=== PATIENT | female | born 1945 | race African-American/Black ===

== ENCOUNTER 2017-04-13 20:51 | Emergency (ER) | payer MEDICARE, OTHER ==
[~2017-04-13] VITALS: Ht 165.1 cm; Wt 93.4 kg
[~2017-04-13 20:51] MED LIST: ACET325T16 PO; AMIO200T2 PO; AMIT50TA PO; AMLO10TA2 PO; ASPI325T11 PO; ASPI81TA50 PO; ATOR40TA59 PO; CLIN150C14 PO; CLON0.3T PO; DIPH25CA58 PO; FAMO20TA5 PO; FURO40TA4 PO; HYDR-2766 PO; INSU100C SQ; INSU100I13 SQ; LEVO500T59 PO; LINA5TAB4 PO; METO50TA2 PO; MULT-658 PO; NITR0.4T22 SL; POLY17PO29 PO; POTA500T5 PO; SENN-22 PO; SENN-37 PO; SPIR25TA3 PO; VALS160T3 PO; ZOLP5TAB PO
[2017-04-13 21:10] VITALS: BP 201/84
--- NOTE | 2017-04-13 21:22 | PHYS DOC ---
Past Medical History Past Medical History: Diabetes-Type I, Hypertension Additional Past Medical Histor: insomnia Past Surgical History: Other Additional Past Surgical Histo: lumbar spine; morphine pain pump Alcohol Use: Sober Drug Use: None Adult General Chief Complaint Chief Complaint: HYPERGLYCEMIA HPI HPI 72-year-old female with history of diabetes presenting to the emergency department today reporting blood sugars around 211 around an hour prior to arrival. She has appointment with Dr. Schneider tomorrow morning. Her blood sugar here is 112. She otherwise is feeling well. She has a chronic headache that is not new and not different from previous. She also reports feeling mildly lightheaded. She reports recently changing her blood pressure medications about a week ago but does take her blood pressure medications. It is notably high here in the emergency room. She denies vision changes oliguria chest pain shortness of breath. Review of systems is negative for chest pain shortness of breath nausea vomiting. All other review of systems is negative unless otherwise noted in history of present illness. ED course: 72-year-old female presenting to the emergency department today reporting have blood sugars however here the patient's blood sugars under control. She has a normal physical examination. No acute symptoms. Blood pressure is quite elevated however the patient is currently titrating blood pressure medications with her primary care doctor. Vital signs otherwise unremarkable. The patient was then discharged home in stable condition to follow up with their primary care physician over the next 2-3 days. They were to return if their symptoms worsened or if they were concerned for any reason. [id number] discharge instructions and return precautions were given. Patient' s questions were answered to their satisfaction. Patient is comfortable plan. Review of Systems Review of Systems SEE ABOVE. Allergies Allergies Allergies Coded Allergies Type Severity Reaction Last Updated Verified penicillin Allergy Intermediate Rash 09/28/16 Yes Physical Exam Physical Exam SEE ABOVE Constitutional: Well developed, well nourished, no acute distress, non-toxic appearance. [] HENT: Normocephalic, atraumatic, bilateral external ears normal, oropharynx moist, no oral exudates, nose normal. [] Eyes: PERRLA, EOMI, conjunctiva normal, no discharge. [] Neck: Normal range of motion, no tenderness, supple, no stridor. [] Cardiovascular:Heart rate regular rhythm, no murmur [] Lungs & Thorax: Bilateral breath sounds clear to auscultation [] Abdomen: Bowel sounds normal, soft, no tenderness, no masses, no pulsatile masses. [] Skin: Warm, dry, no erythema, no rash. [] Back: No tenderness, no CVA tenderness. [] Extremities: No tenderness, no cyanosis, no clubbing, ROM intact, no edema. [] Neurologic: Alert and oriented X 3, normal motor function, normal sensory function, no focal deficits noted. [] Psychologic: Affect normal, judgement normal, mood normal. [] Current Patient Data Vital Signs Vital Signs Date Time Temp Pulse Resp B/P (MAP) Pulse Ox O2 Delivery O2 Flow Rate FiO2 04/13/17 21:10 99.1 56 18 99 Room Air 99.1 Lab Values Laboratory Tests Test 04/13/17 21:04 Glucose (Fingerstick) 112 mg/dL (70-99) H EKG EKG [] Radiology/Procedures Radiology/Procedures [] Course & Med Decision Making Course & Med Decision Making Pertinent Labs and Imaging studies reviewed. (See chart for details) [] Dragon Disclaimer Dragon Disclaimer This electronic medical record was generated, in whole or in part, using a voice recognition dictation system. Departure Departure Impression: Primary Impression: Hyperglycemia Disposition: HOME, SELF-CARE Condition: STABLE Referrals: ANDREW SCHNEIDER MD (PCP) Patient Instructions: Blood Sugar Monitoring, Adult, Managing Your High Blood Pressure Additional Instructions: Thank you for allowing us to participate in your care today. Followup with your primary care physician tomorrow. If you do not have a primary care provider you can ask for a list of our primary care providers. Return to the emergency department you have any new or concerning findings. This should be evaluated by the primary care physician and any necessary consulting services for continued management within a few days after discharge. Return to emergency room if you have any new or concerning symptoms including but not limited to fever, chills, nausea, vomiting, intractable pain, any new rashes, chest pain, shortness of air, uncontrolled bleeding, difficulty breathing, and/or vision loss. TRINH CASTREJON MD Apr 13, 2017 21:22
== END 2017-04-13 21:41 | disposition home or self-care (01) ==
LOC: ER 20:51
DX: E10.65 Type 1 diabetes mellitus with hyperglycemia (principal); I10 Essential (primary) hypertension; Z88.0 Allergy status to penicillin
CPT/HCPCS: 82962; 99282

== ENCOUNTER 2017-06-02 20:04 | Emergency (ER) | payer MEDICARE, OTHER ==
[~2017-06-02] VITALS: Ht 165.1 cm; Wt 77.6 kg
[~2017-06-02 20:04] MED LIST changes: -METO50TA2 PO; +METO50TA6 PO
[2017-06-02] MEDS ORDERED: fentaNYL PF VIAL 100 MCG/2 ML VIAL IV PRN (21:15)
[2017-06-02 22:02] LABS: CALCIUM 9.3 mg/dL (8.5-10.1); CREATININE 3.7 mg/dL (0.6-1.0); GFR 14.5; POTASSIUM 4.1 mmol/L (3.5-5.1)
[2017-06-02 22:08] LABS: ALBUMIN 4.2 g/dL (3.4-5.0); TOTAL BILIRUBIN 0.4 mg/dL (0.2-1.0); TOTAL PROTEIN 8.4 g/dL (6.4-8.2)
--- NOTE | 2017-06-02 22:08 | RAD ---
Three view lumbosacral spine History: Low back pain status post fall AP, coned-down lateral and lateral views of the lumbosacral spine were obtained. COMPARISON: September 04, 2016 The vertebral bodies are aligned. There has been prior fusion of L3-L5 with bilateral pedicle screws and posterior fusion rods. There is a pain pump on the right. There is minimal loss of stature of the L2 vertebral body which is not seen previously. There is mild loss of stature of the T12 vertebral body due to impaction of superior endplate which has progressed slightly. Impression: 1. L2 vertebral body compression fracture with minimal loss of stature was not present previously. 2. Mild loss of stature T12 has progressed since the prior study. End Impression Electronically signed by: Armen Todd III, MD (06/02/2017 10:05 PM) [facility]
[2017-06-02 22:43] LABS: BILIRUBIN,URINE NEGATIVE (NEG); GLUCOSE,URINE NEGATIVE (NEG); NITRITE,URINE NEGATIVE (NEG); PROTEIN,URINE NEGATIVE (NEG-TRACE); UROBILINOGEN,URINE 0.2 mg/dL (0.2 mg/dL)
[2017-06-02 22:50] LABS: BACTERIA,URINE 0 /HPF (0-FEW); RBC,URINE RARE /HPF (0-2); SQUAMOUS EPITHELIAL CELL,UR FEW /LPF; WBC,URINE RARE /HPF (0-4)
[2017-06-02] MEDS ORDERED: CLINDAMYCIN 600MG PREMIX 50 ML IV ONE (23:00)
[2017-06-02 23:12] VITALS: BP 156/83
[2017-06-02 23:45] LABS: BASO % 1 % (0-3); EOS % 3 % (0-3); HEMATOCRIT 31.7 % (36.0-47.0); HEMOGLOBIN 10.2 g/dL (12.0-15.5); LYMPH # 1.2 x10^3/uL (1.0-4.8); LYMPH % 33 % (24-48); MEAN CORPUSCULAR HEMOGLOBIN 27 pg (25-35); MEAN CORPUSCULAR HGB CONC 32 g/dL (31-37); MEAN CORPUSCULAR VOLUME 83 fL (79-100); MONO % 13 % (0-9); NEUT % 50 % (31-73); PLATELET COUNT 122 x10^3/uL (140-400); RED BLOOD COUNT 3.81 x10^6/uL (3.50-5.40); RED CELL DISTRIBUTION WIDTH 16.9 % (11.5-14.5); WHITE BLOOD COUNT 3.5 x10^3/uL (4.0-11.0)
--- NOTE | 2017-06-03 00:06 | ED.ADGEN ---
Past Medical History Past Medical History: Diabetes-Type I, Hypertension Additional Past Medical Histor: insomnia Past Surgical History: Other Additional Past Surgical Histo: lumbar spine; morphine pain pump, triple bypass Alcohol Use: None Drug Use: None Adult General Chief Complaint Chief Complaint: BACK PAIN - NO INJURY HPI HPI Patient is a 72 year old woman, history of hypertension, type 2 diabetes mellitus, chronic renal insufficiency, chronic back pain status post surgical fixation, and placement of a morphine intrathecal pump, which was moved to a subcutaneous position in her lower back 3 weeks ago at [facility], who presents to the emergency department with complaint of worsening of her low back pain and decreased urinary output. She denies any weakness, numbness or tingling, any new injuries, denies any fevers or chills, nausea or vomiting, chest pain or shortness of breath, swelling of the extremities, states the pain is located in her lower back, it is like her typical back pain but "worse". Patient's family is at bedside, and stated they noted "some opening" of the wound 2 days ago, and noted yellow drainage today. She states they've not yet spoken to the patient's surgeon, patient's procedure was performed [facility] by Dr. Riggs. Review of Systems Review of Systems Constitutional: Denies fever or chills. [] Eyes: Denies change in visual acuity. [] HENT: Denies nasal congestion or sore throat. [] Respiratory: Denies cough or shortness of breath. [] Cardiovascular: Denies chest pain or edema. [] GI: Denies abdominal pain, nausea, vomiting, bloody stools or diarrhea. [] : Denies dysuria. [] Musculoskeletal: Lower back pain, no joint pain. Drainage from incision site. Integument: Denies rash. [] Neurologic: Denies headache, focal weakness or sensory changes. [] Endocrine: Denies polyuria or polydipsia. [] Lymphatic: Denies swollen glands. [] Psychiatric: Denies depression or anxiety. [] Current Medications Current Medications Current Medications Medications (Trade) Dose Ordered Sig/Barney Start Time Stop Time Status Last Admin Dose Admin Clindamycin Phosphate 50 ml @ 100 mls/hr 1X ONCE 06/02/17 23:00 06/02/17 23:29 DC 06/02/17 23:47 100 MLS/HR Fentanyl Citrate (Fentanyl 2ml Vial) 25 mcg PRN Q15MIN PRN 06/02/17 21:15 06/03/17 21:14 06/02/17 21:25 25 MCG Allergies Allergies Allergies Coded Allergies Type Severity Reaction Last Updated Verified penicillin Allergy Intermediate Rash 09/28/16 Yes Physical Exam Physical Exam Constitutional: Well developed, well nourished, no acute distress, non-toxic appearance. [] HENT: Normocephalic, atraumatic, bilateral external ears normal, oropharynx moist, no oral exudates, nose normal. [] Eyes: PERRLA, EOMI, conjunctiva normal, no discharge. [] Neck: Normal range of motion, no tenderness, supple, no stridor. [] Cardiovascular:Heart rate regular rhythm, no murmur, S1, S2, no rubs or gallops. [] Lungs & Thorax: Bilateral breath sounds clear to auscultation, no wheezing, rhonchi, rales. [] Abdomen: Bowel sounds normal, soft, no tenderness, no rebound, rigidity, no guarding, no masses, no pulsatile masses. [] Skin: Warm, dry, no erythema, no rash. [] Back: Patient with extensive meter incision site noted in the lower right lumbar region, paraspinal, over intrathecal pump, dehiscence noted throughout the wound, with a foul odor, and a small amount of yellow drainage. No significant surrounding cellulitis, no evidence of injury, patient with tenderness lateral to and over this area, also over the midline spinous areas well. No step-offs or deformities appreciated, no CVA tenderness. [] Extremities: No tenderness, no cyanosis, no clubbing, ROM intact, no edema. Negative Homans sign.[] Neurologic: Alert and oriented X 3, normal motor function, normal sensory function, no focal deficits noted. [] Psychologic: Affect normal, judgement normal, mood normal. [] Current Patient Data Vital Signs Vital Signs Date Time Temp Pulse Resp B/P (MAP) Pulse Ox O2 Delivery O2 Flow Rate FiO2 06/02/17 21:25 18 96 Room Air 06/02/17 20:12 97.8 50 213/90 (131) 97.8 Lab Values Laboratory Tests Test 06/02/17 20:00 06/02/17 22:30 06/02/17 23:38 Sodium Level 135 mmol/L (136-145) L Potassium Level 4.1 mmol/L (3.5-5.1) Chloride Level 100 mmol/L (98-107) Carbon Dioxide Level 24 mmol/L (21-32) Anion Gap 11 (6-14) Blood Urea Nitrogen 25 mg/dL (7-20) H Creatinine 3.7 mg/dL (0.6-1.0) H Estimated GFR (Cockcroft-Gault) 14.5 BUN/Creatinine Ratio 7 (6-20) Glucose Level 120 mg/dL (70-99) H Calcium Level 9.3 mg/dL (8.5-10.1) Total Bilirubin 0.4 mg/dL (0.2-1.0) Aspartate Amino Transferase (AST) 64 U/L (15-37) H Alanine Aminotransferase (ALT) 53 U/L (14-59) Alkaline Phosphatase 112 U/L (46-116) Total Protein 8.4 g/dL (6.4-8.2) H Albumin 4.2 g/dL (3.4-5.0) Albumin/Globulin Ratio 1.0 (1.0-1.7) Urine Collection Type U cath Urine Color Yellow Urine Clarity Clear Urine pH 6.0 Urine Specific Galt 1.015 Urine Protein Negative mg/dL (NEG-TRACE) Urine Glucose (UA) Negative mg/dL (NEG) Urine Ketones (Stick) Negative mg/dL (NEG) Urine Blood Negative (NEG) Urine Nitrite Negative (NEG) Urine Bilirubin Negative (NEG) Urine Urobilinogen Dipstick 0.2 mg/dL (0.2 mg/dL) Urine Leukocyte Esterase Negative (NEG) Urine RBC Rare /HPF (0-2) Urine WBC Rare /HPF (0-4) Urine Squamous Epithelial Cells Few /LPF Urine Transitional Epithelial Cells Occ /LPF Urine Bacteria 0 /HPF (0-FEW) Urine Hyaline Casts Few /HPF White Blood Count 3.5 x10^3/uL (4.0-11.0) L Red Blood Count 3.81 x10^6/uL (3.50-5.40) Hemoglobin 10.2 g/dL (12.0-15.5) L Hematocrit 31.7 % (36.0-47.0) L Mean Corpuscular Volume 83 fL (79-100) Mean Corpuscular Hemoglobin 27 pg (25-35) Mean Corpuscular Hemoglobin Concent 32 g/dL (31-37) Red Cell Distribution Width 16.9 % (11.5-14.5) H Platelet Count 122 x10^3/uL (140-400) L Neutrophils (%) (Auto) 50 % (31-73) Lymphocytes (%) (Auto) 33 % (24-48) Monocytes (%) (Auto) 13 % (0-9) H Eosinophils (%) (Auto) 3 % (0-3) Basophils (%) (Auto) 1 % (0-3) Neutrophils # (Auto) 1.7 x10^3uL (1.8-7.7) L Lymphocytes # (Auto) 1.2 x10^3/uL (1.0-4.8) Monocytes # (Auto) 0.5 x10^3/uL (0.0-1.1) Eosinophils # (Auto) 0.1 x10^3/uL (0.0-0.7) Basophils # (Auto) 0.0 x10^3/uL (0.0-0.2) Laboratory Tests 06/02/17 23:38 Laboratory Tests 06/02/17 20:00 EKG EKG ECG: Rhythm strip: Sinus rhythm, heart rate 50 bpm, no ectopy. As interpreted by me.[] Radiology/Procedures Radiology/Procedures [][facility] [address] [place] [address] IMAGING REPORT Signed PATIENT: VIANNEY MCBRIDE ACCOUNT: [id number] : 1945 LOCATION: ER AGE: 72 SEX: F EXAM STATUS: REG ER ORD. PHYSICIAN: APPLE KARIMI DO REASON: pain PROCEDURE: LUMBAR SPINE 2-3V Three view lumbosacral spine History: Low back pain status post fall AP, coned-down lateral and lateral views of the lumbosacral spine were obtained. COMPARISON: September 04, 2016 The vertebral bodies are aligned. There has been prior fusion of L3-L5 with bilateral pedicle screws and posterior fusion rods. There is a pain pump on the right. There is minimal loss of stature of the L2 vertebral body which is not seen previously. There is mild loss of stature of the T12 vertebral body due to impaction of superior endplate which has progressed slightly. Impression: 1. L2 vertebral body compression fracture with minimal loss of stature was not present previously. 2. Mild loss of stature T12 has progressed since the prior study. End Impression Electronically signed by: Álvaro Myers III, MD (06/02/2017 10:05 PM) [facility] DICTATED and SIGNED BY: ÁLVARO MYERS III, MD DATE: 06/02/172200 CC: ANDREW RIVER MD; APPLE KARIMI DO ~ Course & Med Decision Making Course & Med Decision Making Pertinent Labs and Imaging studies reviewed. (See chart for details) Patient with evidence of incisional infection, with drainage. Laboratory studies obtained after multiple attempts at IV access and blood draw. Patient received fentanyl in the emergency department with significant improvement her pain, initially hypertensive 200s over 1 teens, blood pressure down to 150s over 80s, patient is resting much more comfortably receiving IV analgesia. Patient is afebrile, respiratory rate is 16-19, oxygen saturation in the upper 90s, respirations are unlabored. Moving extremities without issue, no evidence of deficits, no concern for cauda equina or of acute neurological deficiency. X- rays of the lumbar spine reveal hardware, intrathecal pump, and new compression fracture from previous imaging at L2. I spoke with Dr. Riggs at [facility], who requests the patient be transferred to [facility] for additional evaluation. In addition to the patient's noted wound infection, for which wound and blood cultures were obtained, and patient was initiated on clindamycin, patient noted to have a creatinine of 3.7. Last creatinine noted in [facility] was 1.4, and this was in September 2016. I did discuss this with the patient's surgeon, he states the patient does have well known renal disease, but is uncertain the exact creatinine. Patient is also unable to give me exact numbers. I did speak with nurse practitioner Christiana Solano, on behalf of the accepting internal medicine hospitalist, Dr. Moore, we did discuss the patient's course, and laboratory findings, including this elevated creatinine. Patient's electrolytes are within normal limits, without any evidence of acute decompensation or need for emergent intervention at this time. Consent for transfer paperwork was obtained and signed by patient, patient 's pain remains well controlled, with vital signs improved as stated, awaiting EMS transport to [facility]. Dragon Disclaimer Dragon Disclaimer This electronic medical record was generated, in whole or in part, using a voice recognition dictation system. Departure Impression: Primary Impression: Incisional abscess Additional Impressions: Compression fracture Back pain Disposition: 05 TRANSFER OTHER Condition: STABLE Problem Qualifiers APPLE KARIMI DO Jun 03, 2017 00:06
--- NOTE | 2017-06-09 14:18 | VNOTE ---
CALL BACK NOTE CALL BACK Microbiology 06/02/17 Blood Culture - Final, Complete NO GROWTH AFTER 5 DAYS 06/02/17 Gram Stain - Final, Complete This patient had been transferred to [facility] for a compression fracture with an abscess noted. Attempted to contact the patient at home as this cultures were drawn on 06/02 in today's date is 06/09. There is no answer at the current phone number. We'll have the community worker check to see if the patient is a [facility] and this results will be faxed to them if they are. Otherwise the information will be provided to the nursing staff, charge nurse JAKI SINGH APRN Jun 09, 2017 14:18
== END 2017-06-03 01:04 | disposition short-term general hospital (02) ==
LOC: ER 20:04
DX: S32.029A Unspecified fracture of second lumbar vertebra, initial encounter for closed fracture (principal); T81.4XXA Infection following a procedure, initial encounter; I12.9 Hypertensive chronic kidney disease with stage 1 through stage 4 chronic kidney disease, or unspecified chronic kidney disease; N28.9 Disorder of kidney and ureter, unspecified; E10.9 Type 1 diabetes mellitus without complications; Z88.0 Allergy status to penicillin; X58.XXXA Exposure to other specified factors, initial encounter; Y93.89 Activity, other specified; Y99.8 Other external cause status; Y92.89 Other specified places as the place of occurrence of the external cause
CPT/HCPCS: 36415; 72100; 80053; 81001; 83605; 85025; 87040; 87071; 87075; 87205; 96365; 96375; 99285; J3010; J3490